=== PATIENT | female | born 1990 | race African-American/Black ===

== ENCOUNTER 2017-01-14 13:22 | Emergency (ER) | payer OTHER ==
[~2017-01-14] VITALS: Ht 175.3 cm; Wt 72.6 kg
[2017-01-14] MEDS ORDERED: IBUPROFEN600 MG ORAL (13:50)
[2017-01-14 14:08] VITALS: BP 113/74
[2017-01-14 14:10] VITALS: BP 113/74
--- NOTE | 2017-01-14 21:31 | Emergency Room Report ---
History of Present Illness General Chief Complaint: Pain Source: Patient Present Illness HPI The patient is a 26-year-old female presenting for right ankle pain and right shoulder pain after tripping and falling 10 days prior. She denies hitting her head or loss of consciousness. The pain is a 5/10 dull ache to the right ankle and does not radiate. Worse with walking. She denies previous injury to this area. She has not tried any pain medications at. She currently denies any other pain or symptoms Allergies: Coded Allergies: No Known Allergies (Unverified , 01/14/17) Patient History Past Medical History: see triage record Pertinent Family History: none Last Menstrual Period: Unk Now: No Reviewed Nursing Documentation: PMH: Agreed, PSxH: Agreed Nursing Documentation-PMH Past Medical History: No Stated History Review of Systems All Other Systems: negative except mentioned in HPI Physical Exam Vital Signs Date Time Temp Pulse Resp B/P Pulse Ox O2 Delivery O2 Flow Rate FiO2 01/14/17 13:32 98.1 95 14 111/71 97 Room Air Sp02 EP Interpretation: reviewed, normal General Appearance: no apparent distress, alert, GCS 15, non-toxic Head: normocephalic, atraumatic Eyes: bilateral eye PERRL, bilateral eye normal inspection Neck: full range of motion, supple/symm/no masses Gastrointestinal: normal bowel sounds, non tender, soft, non-distended, no guarding, no rebound Musculoskeletal: normal inspection, back normal, gait/station normal, normal range of motion, no calf tenderness, tender - R lateral ankle Neurologic: alert, oriented x3, responsive, motor strength/tone normal, sensory intact, normal gait, speech normal Psychiatric: judgement/insight normal, memory normal, mood/affect normal, no suicidal/homicidal ideation Skin: normal color, no rash, warm/dry, well hydrated Procedures Splinting Splinting : Consent: Verbal Location: R ankle Pre-Made Type: RADHA wrap Pre-Proc Neuro Vasc Exam: normal Post-Proc Neuro Vasc Exam: normal Patient Tolerated: Well Complications: None Medical Decision Making PA Attestation Dr. Pearl is my supervising physician. Patient management was discussed with my supervising physician Diagnostic Impression: Primary Impression: Right ankle sprain Qualified Codes: S93.401A - Sprain of unspecified ligament of right ankle, initial encounter ER Course Physical exam: No apparent distress R ankle: There is tenderness to palpation and edema over the R lateral malleolus. Limited active range of motion. Sensation intact to light touch. No imaging is needed at this time ankle placed in RADHA wrap and the patient is provided crutches. ER precautions are given. Patient given prescription for Motrin and will follow up with primary care physician. Last Vital Signs Date Time Temp Pulse Resp B/P Pulse Ox O2 Delivery O2 Flow Rate FiO2 01/14/17 14:10 98.0 92 15 113/74 98 Room Air Status: improved Disposition: HOME, SELF-CARE Condition: Improved Scripts Ibuprofen* (MOTRIN*) 600 Mg Tablet 600 MG ORAL Q8H Y for For Pain, #30 TAB 0 Refills Prov: JOHANNA BRONSON 01/14/17 Referrals: NOT CHOSEN IPA/MD,REFERRING Patient Instructions: SHEMAR for Routine Care of Injuries Additional Instructions: I discussed my findings with the patient. All questions and concerns have been answered. Treatment and medication compliance have been addressed. I advised the patient that they need to follow up with PMD in 3-5 days. Return to ED if pain remains or worsens, numbness or tingling occurs, new rash is noticed, fever is noticed, or if needed for any reason. Patient verbalized understanding of discharge instructions. JOHANNA BRONSON Jan 14, 2017 21:31
== END 2017-01-14 14:12 | disposition home or self-care (01) ==
LOC: EMR 14:03
DX: S93.401A Sprain of unspecified ligament of right ankle, initial encounter (principal); M25.511 Pain in right shoulder; W01.0XXA Fall on same level from slipping, tripping and stumbling without subsequent striking against object, initial encounter; Y93.9 Activity, unspecified; Y92.9 Unspecified place or not applicable
CPT/HCPCS: 29540; 99283

== ENCOUNTER 2017-05-21 23:11 | Emergency (ER) | payer OTHER ==
[~2017-05-21] VITALS: Ht 175.3 cm; Wt 74.8 kg
[~2017-05-21 23:11] MED LIST: IBUPROFEN600 MG ORAL
[2017-05-21 23:30] VITALS: BP 104/63
[2017-05-22 00:40] VITALS: BP 120/64
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
== END 2017-05-22 00:40 | disposition home or self-care (01) ==
LOC: EMR 23:35
DX: S59.912A Unspecified injury of left forearm, initial encounter (principal); V49.50XA Passenger injured in collision with unspecified motor vehicles in traffic accident, initial encounter; Y92.410 Unspecified street and highway as the place of occurrence of the external cause
CPT/HCPCS: 99283

== ENCOUNTER 2020-02-20 17:09 | Emergency (ER) | payer OTHER ==
[~2020-02-20] VITALS: Ht 175.3 cm; Wt 74.8 kg
[2020-02-20 17:32] VITALS: BP 130/74
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
[2020-02-20] MEDS ORDERED: HYDROcodone/Acetamin 5/325 tab PO ONE (17:45)
[2020-02-20 18:31] LABS: APPEARANCE,URINE CLOUDY; BILIRUBIN, URINE NEGATIVE (NEGATIVE); COLOR,URINE YELLOW; GLUCOSE, URINE (UA) NEGATIVE (NEGATIVE); KETONES,URINE 2+ (NEGATIVE); LEUKOCYTE ESTERASE ,URINE 3+ (NEGATIVE); NITRITE,URINE POSITIVE (NEGATIVE); PROTEIN,URINE 2+ (NEGATIVE); UROBILINOGEN,URINE 4 MG/DL (0.0-1.0)
[2020-02-20] MEDS ORDERED: IBUPROFEN600 M1 ORAL (18:39)
[2020-02-20] MEDS ORDERED: NITROFURANTOIN100 M2 ORAL (18:39)
[2020-02-20] MEDS ORDERED: ROBAXIN-500MG ORAL (18:39)
[2020-02-20 18:48] VITALS: BP 127/76
--- NOTE | 2020-02-20 18:51 | Diagnostic Imaging Report ---
INDICATION: Trauma. COMPARISON: Unavailable FINDINGS: Single frontal view demonstrates a normal cardiomediastinal silhouette. The lungs are clear. No focal consolidation or pneumothorax. No pleural effusions. No displaced rib fractures. IMPRESSION: No acute cardiopulmonary disease.
== END 2020-02-20 18:48 | disposition home or self-care (01) ==
LOC: EMR 17:31
DX: S39.012A Strain of muscle, fascia and tendon of lower back, initial encounter (principal); N30.00 Acute cystitis without hematuria; M54.6 Pain in thoracic spine; W19.XXXA Unspecified fall, initial encounter; Y92.9 Unspecified place or not applicable; M25.551 Pain in right hip; F17.200 Nicotine dependence, unspecified, uncomplicated
CPT/HCPCS: 71045; 81001; 81025; 87086; 87181; Z7502; 99283